=== PATIENT | female | born 1970 | race Caucasian/White ===

== ENCOUNTER 2018-10-27 22:04 | Emergency (ER) | payer BC, OTHER ==
[2018-10-27] MEDS ORDERED: MORPHINE SULFATE 10 MG/ML SOL IV ONE (22:15)
[2018-10-27] MEDS ORDERED: SODIUM CHLORIDE 0.9% 1000ML 1,000 ML IV NR (22:15)
[2018-10-27] MEDS ORDERED: ONDANSETRON HCL 4 MG/2 ML SOL IV ONE (22:15)
[2018-10-27 22:22] LABS: BASOPHILS % (AUTO) 1 % (0-3); EOSINOPHILS % (AUTO) 1 % (0-9); HEMATOCRIT 36 % (35-47); HEMOGLOBIN 11.9 gm/dl (12.0-15.5); LYMPHOCYTES % (AUTO) 10.4 % (10-50); MEAN CORPUSCULAR HEMOGLOBIN 27.2 pg (27.0-32.0); MEAN CORPUSCULAR VOLUME 82 fL (81-99); MONOCYTES % (AUTO) 5.2 % (0-12); NEUTROPHILS % (AUTO) 82.6 % (37-80)
[2018-10-27] MEDS ORDERED: ONDANSETRON HCL 4 MG/2 ML SOL ONE (22:25)
[2018-10-27] MEDS ORDERED: MORPHINE SULFATE 10 MG/ML SOL ONE (22:25)
[2018-10-27 22:28] LABS: APPEARANCE,URINE Cloudy; BILIRUBIN,URINE NEGATIVE (NEGATIVE); COLOR,URINE Yellow; GLUCOSE, URINE (UA) NEGATIVE (NEGATIVE); KETONES,URINE NEGATIVE (NEGATIVE); LEUKOCYTE ESTERASE ,URINE NEGATIVE (NEGATIVE); NITRATE,URINE NEGATIVE (NEGATIVE); OCCULT BLOOD,URINE NEGATIVE (NEG-TRACE); PH,URINE 8.5; UROBILINOGEN,URINE 0.2 (0.2-1.0 EU)
[2018-10-27 22:35] LABS: BILIRUBIN,TOTAL 0.2 mg/dl (0.2-1.0); CALCIUM 8.8 mg/dl (8.5-10.1); CARBON DIOXIDE 22.2 mEq/L (21-32); CREATININE 1.18 mg/dl (0.60-1.00); POTASSIUM 3.3 mMol/L (3.5-5.1); TOTAL PROTEIN 7.7 gm/dl (6.4-8.2)
[2018-10-27 22:39] LABS: BACTERIA 2+ (< 1+); CRYSTALS 2+ (0-3 AVE/HPF); RBC,URINE 0-1 (0-3AV/HPF)
[2018-10-28 00:57] VITALS: RESP 20
[2018-10-28 00:58] VITALS: PULSE 82
[2018-10-28 00:59] VITALS: BP 128/86; TEMP 97.4; O2SAT 10
== END 2018-10-27 23:53 | disposition home or self-care (01) ==
LOC: ED 22:04
DX: R10.31 Right lower quadrant pain (principal); M54.5 Low back pain; R11.10 Vomiting, unspecified; N20.2 Calculus of kidney with calculus of ureter
CPT/HCPCS: 74176; 80053; 81001; 84703; 85025; 87088; 96374; 96375; 99283; 99284; J2270; J2405